=== PATIENT | male | born 1985 | race Caucasian/White ===

== ENCOUNTER 2017-05-23 07:49 | Emergency (ER) | payer OTHER ==
[~2017-05-23] VITALS: Ht 180.3 cm; Wt 88.6 kg
[2017-05-23] MEDS ORDERED: CEPHALEXIN MONOHYDRATE 500 MG CAPSULE PO ONE (10:30)
[2017-05-23] MEDS ORDERED: HYDROCODONE/ACETAMINOPHEN 5-325 MG TABLET PO ONE (10:30)
[2017-05-23 11:16] VITALS: BP 117/75
[2017-05-24] MEDS ORDERED: CEPH250 PO (17:19)
[2017-05-26] MEDS ORDERED: BACTDSB PO (10:46)
[2017-05-26] MEDS ORDERED: TRAM50TA4 PO (10:46)
[2017-05-26] MEDS ORDERED: CEPH500 PO (10:46)
== END 2017-05-23 11:17 | disposition home or self-care (01) ==
LOC: EMS 08:00
DX: S61.411A Laceration without foreign body of right hand, initial encounter (principal); R03.0 Elevated blood-pressure reading, without diagnosis of hypertension; W22.8XXA Striking against or struck by other objects, initial encounter; Y93.89 Activity, other specified; Y92.89 Other specified places as the place of occurrence of the external cause; Y99.8 Other external cause status
CPT/HCPCS: 99284